=== PATIENT | female | born 1985 | race Caucasian/White ===

== ENCOUNTER → 2020-06-21 10:30 | Outpatient (CLI) | payer OTHER, SELFPAY ==
--- NOTE | 2020-06-21 10:38 | CA_ITS ---
APPROVED REPORT Right Lower Extremity Venous Study for DVT. Warehouse Handler: CT Indications Lower Extremity Pain: Right Lower Extremity Edema: Right Vein Imaging CFV (R): compressive, spontaneous, phasic, augmentation SFJ (R): compressive, spontaneous, phasic, augmentation FEM (R): compressive, spontaneous, phasic, augmentation POP (R): compressive, spontaneous, phasic, augmentation DFV (R): compressive, spontaneous, phasic, augmentation PTV (R): compressive, spontaneous, phasic, augmentation GSV (R): compressive, spontaneous, phasic, augmentation SSV (R): compressive, spontaneous, phasic, augmentation Peroneals (R):compressive, spontaneous, phasic, augmentation GAS (R): compressive, spontaneous, phasic, augmentation Findings RLE negative for DVT/SVT. Vessels compressible. Calf difficult to image. Conclusion RLE negative for DVT/SVT. Vessels compressible. Electronically signed by : Gilson Bergman MD 06/21/2020 19:52:27
== END ==
PROVIDERS: PCP Nurse Practitioner Family; Visit Provider Nurse Practitioner Family
DX: M79.89 Other specified soft tissue disorders (principal); M79.661 Pain in right lower leg
CPT/HCPCS: 93971

== ENCOUNTER → 2020-06-28 09:13 | Outpatient (CLI) | payer OTHER, SELFPAY ==
--- NOTE | 2020-06-28 | MR_ITS ---
PROCEDURE: MR LOWER LEG RT WO CON CLINICAL INDICATION: SOFTBALL INJURY PAIN IN RT CALF MUSCLE. QUESTION TORN MUSCLE. NO PRIOR. > COMPARISON: No exams were available for comparison TECHNIQUE: Routine multiplanar multi echo sequences are performed without gadolinium enhancement. FINDINGS: There is focal increased T2 signal involving the distal aspect of the medial head of the gastrocnemius consistent with tear of the muscle at this area. This is 18 cm distal to the level of the knee joint prison between the knee and the ankle. There is a small amount of fluid in this area and there is some edema of the medial head of the gastrocnemius superior to this region. The muscle is not significantly retracted.. There is subcutaneous fluid noted along the medial aspect of the calf. Small amount fluid also transects between the medial head of the gastrocnemius and the soleus muscle. No acute fracture is evident. Subcutaneous edema is present on both medial and lateral aspect of the ankle. IMPRESSION: The findings are compatible with tear of the distal aspect of the medial head of the gastrocnemius muscle with associated edema of the muscle and a small amount fluid within the tissue planes along with subcutaneous edema of the ankle. Dictated by: Gilson Bergman MD 06/29/2020 12:54 Gilson Bergman MD in [place] 06/29/2020 12:54
[2020-06-28 09:53] LABS: Urine Pregnancy, HCG Qual. Negative (Negative)
== END ==
PROVIDERS: PCP Nurse Practitioner Family; Visit Provider Nurse Practitioner Family
DX: Z32.00 Encounter for pregnancy test, result unknown (principal); M79.89 Other specified soft tissue disorders; M79.661 Pain in right lower leg; S89.91XA Unspecified injury of right lower leg, initial encounter
CPT/HCPCS: 73718; 81025

== ENCOUNTER 2023-07-28 22:12 | Observation (INO) | payer BC, SELFPAY ==
[2023-07-28 22:29] VITALS: RESP 20; TEMP 36.5; O2SAT 99; BMI 31.0
[2023-07-28 22:35] VITALS: BP 143/75; PULSE 71
--- NOTE | 2023-07-28 22:39 | CT_ITS ---
PROCEDURE INFORMATION: Exam: CT Abdomen And Pelvis With Contrast Exam date and time: 07/28/2023 11:03 PM Age: 37 years old Clinical indication: Abdominal pain; Additional info: Ruq pain, vomit TECHNIQUE: Imaging protocol: Computed tomography of the abdomen and pelvis with contrast. Radiation optimization: All CT scans at this facility use at least one of these dose optimization techniques: automated exposure control; mA and/or kV adjustment per patient size (includes targeted exams where dose is matched to clinical indication); or iterative reconstruction. Contrast material: ISOVUE; Contrast volume: 75 ml; Contrast route: IV; REPORTING DATA: Count of CT and Cardiac NM exams in prior 12 months: This patient has received 0 known CTs and 0 known cardiac nuclear medicine studies in the 12 months prior to the current study. COMPARISON: CA VENOUS DOPPLER LE RT 06/21/2020 10:44 AM FINDINGS: Lungs: Lung bases are clear. Liver: Diffuse periportal edema noted throughout the liver. Liver otherwise unremarkable. Gallbladder and bile ducts: Evidence for potential mild to moderate dilatation of the extrahepatic CBD measuring up to 10 mm. This extends to the ampulla. Small stones versus sludge in the gallbladder which is otherwise unremarkable. Pancreas: Normal. No ductal dilation. Spleen: Normal. No splenomegaly. Adrenal glands: Normal. No mass. Kidneys and ureters: A 4 mm nonobstructing stone in the inferior right kidney. A 5 mm nonobstructing stone superior left kidney. Kidneys and ureters otherwise unremarkable with no obstructing stones or uropathy. Stomach and bowel: Unremarkable. No obstruction. No mucosal thickening. Appendix: No evidence of appendicitis. Intraperitoneal space: Unremarkable. No free air. No significant fluid collection. Vasculature: Unremarkable. No abdominal aortic aneurysm. Lymph nodes: Unremarkable. No enlarged lymph nodes. Urinary bladder: Unremarkable as visualized. Reproductive: Unremarkable as visualized. Bones/joints: Unremarkable. No acute fracture. Soft tissues: Unremarkable. IMPRESSION: 1. Mildly to moderately dilated extrahepatic CBD for patient of this age. This finding can be correlated clinically. Consider ultrasound for further assessment. 2. Periportal edema which is nonspecific finding but can be associated with acute viral hepatitis among other possibilities.
--- NOTE | 2023-07-28 22:40 | HMH.EDGENADL ---
Discharge Plan Disposition Patient Disposition: Admitted Clinical Impressions Clinical Impression: Abdominal pain, Cholelithiasis with choledocholithiasis Discharge ED Provider: Andrey Zarco General Adult HPI <Andrey Zarco MD - Last Filed: 07/28/23 23:02> General Chief complaint: Abdominal Pain Stated complaint: RT upper abd pain Time Seen by Provider: 07/28/23 22:19 Mode of Arrival: Ambulatory Source of Information: Patient Limitations: No Limitations Description of Symptoms (Recalled from ER Triage Doc. by RN): Patient states she had a and a tubal ligation almost 3 months ago, started expirencing RUQ pain off and on, tonight after she ate chilli she started having the pain agian but nothing was improving her pain. Rates pain 10 History of Present Illness HPI narrative: Patient is 37-year-old female who presents emergency department for evaluation of right upper quadrant abdominal pain. Patient has had right upper quadrant pain on and off recently, tonight after eating she had associated retching and right upper quadrant abdominal pain. Pain is 10 out of 10. No other acute complaints at this time. Related Data Home Medications Medication Instructions Recorded Confirmed No Known Home Medications 07/28/23 07/28/23 Allergies Allergy/AdvReac Type Severity Reaction Status Date / Time NKDA - NO KNOWN DRUG Allergy Unknown Uncoded 09/17/17 15:40 ALLERGIES PFSH <Andrey Zarco MD - Last Filed: 07/28/23 23:02> PFS Disclaimer: The information contained in this section may have been updated after the patient was seen, as this information can be updated by other users. Medical History (Updated 07/29/23 @ 02:15 by Kevin Tesfaye MD) delivery delivered Preeclampsia Surgical History (Updated 07/28/23 @ 22:42 by Ivon Ferrell RN) Tubal ligation status Social History (Updated 07/28/23 @ 23:02 by Andrey Zarco MD) Smoking Status: Never smoker alcohol intake: never current occupational status: other Travel in the last 8 weeks: None <Andrey Zarco MD - Last Filed: 07/28/23 23:02> ROS Obtained: Yes Systems reviewed as appropriate & no additional complaints except as documented Physical Exam <Andrey Zarco MD - Last Filed: 07/28/23 23:02> General General appearance: alert and in no apparent distress Head Head exam: atraumatic and normocephalic Eye Eye exam: Present PERRL and EOMI ENT ENT exam: Present mucous membranes moist Neck Neck exam: Present normal inspection Chest Chest inspection: Present normal inspection and symmetric chest wall rise Respiratory Respiratory exam: Present normal lung sounds bilaterally; Absent respiratory distress Cardiovascular Cardiovascular exam: Present regular rate and normal rhythm Abdominal Exam Abdominal exam: Present soft, tenderness (Right upper quadrant) and guarding (Voluntary) Extremities Exam Extremities exam: Present normal inspection Neurological Exam Neurological exam: Present alert Psychiatric Psychiatric exam: Present normal affect Skin Skin exam: Present warm and dry Medical Decision Making <Andrey Zarco MD - Last Filed: 07/28/23 23:02> Onofre Lauren Pt receiving controlled substance: No Vital Signs: 07/28/23 22:29 07/28/23 22:35 07/29/23 02:16 Temperature 97.7 F Temperature Source Oral Pulse Rate 71 57 L Respiratory Rate 20 18 Blood Pressure 143/75 H 135/75 Blood Pressure Mean 95 02 Sat by Pulse Oximetry 99 99 Oxygen Delivery Method Room Air Room Air Lab Data Lab Results 07/28/23 22:15: Urine Color Yellow, Urine Appearance Clear, Urine pH 6.0, Ur Specific [place] >= 1.030, Urine Protein Trace, Urine Glucose (UA) Negative, Urine Ketones Negative, Urine Blood 2+, Urine Nitrate Negative, Urine Bilirubin Negative, Urine Urobilinogen 1.0, Ur Leukocyte Esterase Negative, Urine RBC 5-10, Urine WBC None, Ur Squamous Epith Cells Occasional, Urine Bacteria No
[2023-07-28 22:45] LABS: Microscopic, Urine URINE MICROSCOPIC (MICROSCOPIC)
[2023-07-28 22:46] LABS: Basophils # 0.1 K/mm3 (0-0.2); Basophils % 0.6 % (0.1-2.0); Eosinophils # 0.1 K/mm3 (0.0-0.4); Eosinophils % 1.2 % (0.1-12.0); Hematocrit 37.9 % (37.0-47.0); Hemoglobin 12.5 g/dL (12.2-16.2); Lymphocytes # 2.5 K/mm3 (0.7-4.5); Lymphocytes % 24.7 % (10-50); Mean Corpuscular Hemoglobin 28.9 pg (27.0-31.2); Mean Corpuscular Volume 87.7 fl (81-99); Mean Platelet Volume 7.8 fl (7.4-10.4); Monocytes # 0.5 K/mm3 (0.1-1.0); Monocytes % 5.2 % (1.7-9.3); Neutrophils % 68.4 % (37.0-80.0); Platelet Count 329 K/mm3 (142-424); Red Blood Count 4.32 M/mm3 (4.20-5.40); Red Cell Distribution Width 14.8 % (11.5-17.5); White Blood Count 10.3 K/mm3 (4.8-10.8)
[2023-07-28 22:47] LABS: Appearance,Urine CLEAR (Clear); Bilirubin,Urine Negative (Negative); Blood, Urine 2+ (Negative); Color,Urine YELLOW (Yellow); Glucose,Urine (UA) Negative (Negative); Ketones,Urine Negative (Negative); Leukocyte Esterase,Urine Negative (Negative); Nitrate,Urine Negative (Negative); Protein,Urine TRACE (Negative); Specific Gravity, Urine >= 1.030 (1.005-1.030)
[2023-07-28 22:48] LABS: Chloride 104 mmol/L (98-107); Potassium 3.6 mmoL/L (3.5-5.1); Sodium 141 mmol/L (136-145)
[2023-07-28 22:50] LABS: Alanine Aminotransferase 75 U/L (12-78); Aspartate Amino Transferase 75 U/L (14-36); Blood Urea Nitrogen 16 mg/dl (7-17); Creatinine Clearance Estimated 130 mL/min (50-200); Estimated Glomerular Filt Rate 71 ml/min (>60); GFR (African American) 86 ML/MIN (>60)
[2023-07-28 22:51] LABS: Albumin/Globulin Ratio 1.5 (1.1-1.8); Alkaline Phosphatase 89 U/L (38-126); Anion Gap 13.6 mEq/L (5-15); Bilirubin,Total 0.3 mg/dl (0.2-1.3); Calcium 9.4 mg/dl (8.4-10.2); Carbon Dioxide 27 mmol/L (22.0-30.0); Globulin 3.3 g/dL (1.3-3.2); Glucose 109 mg/dl (74-100); Lipase 163 U/L (23-300); Total Protein,Serum 8.3 g/dl (6.3-8.2)
[2023-07-28 22:54] LABS: Squamous Epithelial Cell,Urine Occasional #/hpf (0-5)
[2023-07-29] VITALS (23 sets, daily range): BP systolic 124–178; BP diastolic 68–102; PULSE 52–80; RESP 16–19; TEMP 36.6–36.9; O2SAT 93–100; BMI 36.5; BMI 36.6
--- NOTE | 2023-07-29 00:38 | PC.NURSE ---
patient in bed waiting for disposition. No acute changes
--- NOTE | 2023-07-29 00:51 | PC.NURSE ---
Addendum entered by Grazyna Munroe RN 07/29/23 00:52: and no GI coverage gavino Original Note: called [facility]
--- NOTE | 2023-07-29 01:25 | PC.NURSE ---
[facility] advised they are full at this time and can't take the pt.
--- NOTE | 2023-07-29 01:33 | PC.NURSE ---
Called [facility] for possible placement. Advised by transfer center that they are on a hold for all the facilities at this time and will put the pt on a waitlist. JOSE
--- NOTE | 2023-07-29 01:41 | PC.NURSE ---
Hospitalist accepted the pt for further evaluation. JOSE
--- NOTE | 2023-07-29 01:46 | PC.NURSE ---
Observation admission 209 to service of hospitalist with dx of cholecystitis, and cholelithiasis.
--- NOTE | 2023-07-29 02:15 | PC.NURSE ---
report given to RAJ Robles
--- NOTE | 2023-07-29 02:39 | PC.NURSE ---
pt to floor via wheel chair [id number]
--- NOTE | 2023-07-29 02:44 | EXP.HP ---
History of Present Illness *Admission Date: 07/29/23 *Reason for visit:: choledochlithiasis *History of present illness: 37 year old female presented to the ED for c/o RUQ pain. No prior medical hx. Pain has been on and off for past three months since delivering her third baby via section. She states also occurred during . She normally takes Pepcid and motion to improve pain. Tonight after eating pain was 10 out of 10 with no relief. Her ED work up reveals an elevated AST to [address] of her abd reviewed by me and reveals dilation of her common bile duct that measures up to 10 mm and periportal edema. The patient is hemodynamically stable and refusing narcotics. She appears generally healthy and is no acute distress. The pt was accepted at by Dr. Calles for further medical management and GI services. The ED physician attempted to have pt transferred to [facility], and [facility] but was unable to get a pending bed. has a pending bed on the medical floor. The ED physician consulted the hospitalist team for admission pending transfer. I admitted the pt to the medical surgical floor. She will receive PRN medication for pain. [facility] Disclaimer: The information contained in this section may have been updated after the patient was seen, as this information can be updated by other users. Medical History (Updated 07/29/23 @ 08:50 by Mahin Mauro MD) delivery delivered Preeclampsia Surgical History Tubal ligation status Family History (Updated 07/29/23 @ 02:50 by Dafne Ward RN) No significant family history Social History (Updated 07/29/23 @ 02:50 by Dafne Ward RN) Smoking Status: Never smoker alcohol intake: never current occupational status: other Travel in the last 8 weeks: None Review of Systems *Cardiovascular Cardiovascular: Reports system reviewed and no additional complaints, except as documented *Respiratory Respiratory: Reports system reviewed and no additional complaints, except as documented *Gastrointestinal Gastrointestinal: Reports abdominal pain (RUQ) *Genitourinary Genitourinary: Reports system reviewed and no additional complaints, except as documented *Musculoskeletal Musculoskeletal: Reports system reviewed and no additional complaints, except as documented *Neurologic Neurologic: Reports system reviewed and no additional complaints, except as documented Meds Home Medications and Allergies Home Medications Medication Instructions Recorded Confirmed Type No Known Home Medications 07/28/23 07/28/23 History New Prescriptions to Start Prescriptions: Allergies Allergy/AdvReac Type Severity Reaction Status Date / Time NKDA - NO KNOWN DRUG Allergy Unknown Uncoded 09/17/17 15:40 ALLERGIES Exam Data for Last 24 hours Vital signs and Labs for Last 24 Hours: Temp Pulse Resp BP Pulse Ox O2 Del Method 98.1 F 80 18 124/76 99 Room Air 07/29/23 02:30 07/29/23 02:30 07/29/23 02:30 07/29/23 02:30 07/29/23 02:16 07/29/23 02:16 Laboratory Results - last 24 hr 07/28/23 22:15: Urine Color Yellow, Urine Appearance Clear, Urine pH 6.0, Ur Specific [place] >= 1.030, Urine Protein Trace, Urine Glucose (UA) Negative, Urine Ketones Negative, Urine Blood 2+, Urine Nitrate Negative, Urine Bilirubin Negative, Urine Urobilinogen 1.0, Ur Leukocyte Esterase Negative, Urine RBC 5-10, Urine WBC None, Ur Squamous Epith Cells Occasional, Urine Bacteria None 07/28/23 22:25: WBC 10.3, RBC 4.32, Hgb 12.5, Hct 37.9, MCV 87.7, MCH 28.9, MCHC 33.0, RDW 14.8, Plt Count 329, MPV 7.8, Neut % (Auto) 68.4, Lymph % (Auto) 24.7, Camp % (Auto) 5.2, Eos % (Auto) 1.2, Baso % (Auto) 0.6, Neut # (Auto) 7.0, Lymph # (Auto) 2.5, Camp # (Auto) 0.5, Eos # (Auto) 0.1, Baso # (Auto) 0.1, Sodium 141, Potassium 3.6, Chloride 104, Carbon Dioxide 27, Anion Gap 13.6, BUN 16, Creatinine 0.90, Estimated Creat Clear 1
[2023-07-29 06:12] LABS: Basophils % 0.6 % (0.1-2.0); Eosinophils # 0.1 K/mm3 (0.0-0.4); Eosinophils % 1.1 % (0.1-12.0); Hematocrit 35.4 % (37.0-47.0); Hemoglobin 11.7 g/dL (12.2-16.2); Lymphocytes # 2.4 K/mm3 (0.7-4.5); Lymphocytes % 30.5 % (10-50); Mean Corpuscular HGB Conc 33.1 g/dL (31.8-35.4); Mean Corpuscular Hemoglobin 29.6 pg (27.0-31.2); Mean Corpuscular Volume 89.3 fl (81-99); Mean Platelet Volume 7.9 fl (7.4-10.4); Monocytes # 0.5 K/mm3 (0.1-1.0); Monocytes % 6.7 % (1.7-9.3); Neutrophils # 4.7 K/mm3 (1.8-7.8); Neutrophils % 61.1 % (37.0-80.0); Platelet Count 281 K/mm3 (142-424); Red Blood Count 3.97 M/mm3 (4.20-5.40); Red Cell Distribution Width 14.8 % (11.5-17.5); White Blood Count 7.7 K/mm3 (4.8-10.8)
[2023-07-29 06:18] LABS: Chloride 107 mmol/L (98-107)
[2023-07-29 06:19] LABS: Sodium 139 mmol/L (136-145)
[2023-07-29 06:22] LABS: Blood Urea Nitrogen 16 mg/dl (7-17); Calcium 8.8 mg/dl (8.4-10.2); Carbon Dioxide 26 mmol/L (22.0-30.0); Creatinine Clearance Estimated 153 mL/min (50-200); Estimated Glomerular Filt Rate 81 ml/min (>60); GFR (African American) 98 ML/MIN (>60); Glucose 95 mg/dl (74-100)
--- NOTE | 2023-07-29 07:10 | US_ITS ---
FINAL REPORT CLINICAL HISTORY: eval gallbladdder and ducts FINDINGS: Sonographic images of the right upper quadrant were obtained. The pancreas is partially obscured.The liver has an unremarkable appearance. A gallstone is present. There is no evidence of biliary ductal dilatation.The common duct measures 6 mm, which is borderline.. Limited images of the right kidney are unremarkable. IMPRESSION: Gallstones with borderline common duct. If indicated, consider MRCP for further evaluation. Reviewed, Interpreted and Dictated by Lazaro Thompson III, MD Transcribed by Rosa Roberts Authenticated and [facility]
[2023-07-29 07:15] LABS: Chloride 107 mmol/L (98-107)
[2023-07-29 07:16] LABS: Sodium 139 mmol/L (136-145)
[2023-07-29 07:18] LABS: Alanine Aminotransferase 187 U/L (12-78); Albumin Level 4.3 g/dl (3.5-5.0); Albumin/Globulin Ratio 1.5 (1.1-1.8); Alkaline Phosphatase 92 U/L (38-126); Aspartate Amino Transferase 208 U/L (14-36); Bilirubin,Total 0.5 mg/dl (0.2-1.3); Blood Urea Nitrogen 16 mg/dl (7-17); Calcium 8.8 mg/dl (8.4-10.2); Carbon Dioxide 25 mmol/L (22.0-30.0); Creatinine Clearance Estimated 153 mL/min (50-200); Estimated Glomerular Filt Rate 81 ml/min (>60); GFR (African American) 98 ML/MIN (>60); Globulin 2.9 g/dL (1.3-3.2); Glucose 95 mg/dl (74-100); Total Protein,Serum 7.2 g/dl (6.3-8.2)
--- NOTE | 2023-07-29 10:38 | MR_ITS ---
FINAL REPORT CLINICAL HISTORY: RUQ ABD PAIN COMPARISON: 07/29/2023 FINDINGS: Multiplanar MR imaging of the abdomen was performed without contrast. There is motion artifact on many sequences. Images of the liver reveal no evidence of mass. Gallbladder contains a gallstone and sludge. There is mild pericholecystic fluid. Acute cholecystitis not excluded. Common hepatic duct is borderline at 6 mm. There is no well-defined common duct stone. However, distal common bile duct is abnormally blunted. Therefore, stone at the ampulla is not excluded. IMPRESSION: Gallstone and sludge with mild pericholecystic fluid. Acute cholecystitis not excluded. Borderline common hepatic duct without well-defined stone. However, stone at the ampulla not excluded. Reviewed, Interpreted and Dictated by Lazaro Thompson III, MD Transcribed by Rosa Roberts Authenticated and . [facility]
--- NOTE | 2023-07-29 13:36 | EXP.SURG.CON ---
History of Present Illness *Admission Date: 07/29/23 *History of present illness: The following is obtained from Hospitalist Admission History & Physical: 37 year old female presented to the ED for c/o RUQ pain. No prior medical hx. Pain has been on and off for past three months since delivering her third baby via section. She states also occurred during . She normally takes Pepcid and motion to improve pain. Tonight after eating pain was 10 out of 10 with no relief. Her ED work up reveals an elevated AST to [address] of her abd reviewed by me and reveals dilation of her common bile duct that measures up to 10 mm and periportal edema. The patient is hemodynamically stable and refusing narcotics. She appears generally healthy and is no acute distress. The pt was accepted at by Dr. Calles for further medical management and GI services. The ED physician attempted to have pt transferred to [place], [place], and [facility] but was unable to get a pending bed. has a pending bed on the medical floor. The ED physician consulted the hospitalist team for admission pending transfer. I admitted the pt to the medical surgical floor. She will receive PRN medication for pain. Patient was admitted to the medical surgical floor with possible choledocholithiasis based on CT scan. After admission she did show some increasing transaminase. However she continued have normal alkaline phosphatase and bilirubin. She underwent gallbladder ultrasound which revealed gallstone present in the gallbladder with 6 mm common bile duct which was felt to be borderline. Given the borderline ductal dilatation and elevation of transaminases she did undergo MRCP. This reveals findings of gallstones and sludge with mild pericholecystic fluid. Acute cholecystitis not excluded. . She has borderline common hepatic duct without well-defined stone however stone at the ampulla not excluded. [facility] Disclaimer: The information contained in this section may have been updated after the patient was seen, as this information can be updated by other users. Medical History delivery delivered Preeclampsia Surgical History Tubal ligation status Family History Other No significant family history Social History Smoking Status: Never smoker alcohol intake: never substance use type: denies use current occupational status: other Travel in the last 8 weeks: None Review of Systems *Neurologic Neurologic: Reports system reviewed and no additional complaints, except as documented Meds Home Medications and Allergies Home Medications Medication Instructions Recorded Confirmed Type No Known Home Medications 07/28/23 07/28/23 History New Prescriptions to Start Prescriptions: Allergies Allergy/AdvReac Type Severity Reaction Status Date / Time NKDA - NO KNOWN DRUG Allergy Unknown Uncoded 09/17/17 15:40 ALLERGIES Exam (Inpt) Vital signs and Labs for Last 24 Hours: Temp Pulse Resp BP Pulse Ox O2 Del Method 98.4 F 61 19 126/84 99 Room Air 07/29/23 08:00 07/29/23 08:00 07/29/23 08:00 07/29/23 08:00 07/29/23 08:00 07/29/23 12:58 Laboratory Results - last 24 hr 07/28/23 22:15: Urine Color Yellow, Urine Appearance Clear, Urine pH 6.0, Ur Specific [place] >= 1.030, Urine Protein Trace, Urine Glucose (UA) Negative, Urine Ketones Negative, Urine Blood 2+, Urine Nitrate Negative, Urine Bilirubin Negative, Urine Urobilinogen 1.0, Ur Leukocyte Esterase Negative, Urine RBC 5-10, Urine WBC None, Ur Squamous Epith Cells Occasional, Urine Bacteria None
--- NOTE | 2023-07-29 13:54 | P.PNANES_ITS ---
[facility] Disclaimer: The information contained in this section may have been updated after the patient was seen, as this information can be updated by other users. Medical History delivery delivered Preeclampsia Surgical History Tubal ligation status Family History Other No significant family history Social History Smoking Status: Never smoker alcohol intake: never substance use type: denies use current occupational status: other Travel in the last 8 weeks: None [facility] Anesthesia Checklist Patient Identification Patient Identification: Arm Band and Verbal (Name & ) Structural Data Admitted From: Inpatient Planned Operative Procedure/s: Lap cholecystectomy Consent for Planned Operative Procedure(s) Verified: Yes NPO Status Verified Time NPO: 00:00 Chart Verification Results Verified: CBC and BMP Additional verifications Anesthesia Reactions: No Airway Assessment Mallampati Score:: Class I C-Spine Mobility Assessed: Yes TMJ Mobility Assessed: Yes Dentition: Good Dentition Neurological Assessment Level of Consciousness: Awake Hx Seizures: No Numbness or tingling in extremities: No Anesthesia Plan Anesthesia Risk discussed: Yes Anesthesia Plan: Verified ASA Class: II Anesthesia Type: General
[2023-07-29 14:55] LABS: Urine Pregnancy, HCG Qual. Negative (Negative)
--- NOTE | 2023-07-29 16:36 | EXP.OP.NOTE ---
Date of procedure: 07/29/23 Pre-op Diagnosis:: Acute cholecystitis Post-op Diagnosis:: Same Procedure performed:: Laparoscopic cholecystectomy Surgeon:: Lazaro Winters MD NURSE CASE MANAGER:: Wan Santiago Anesthesia: GETMelany Estimated blood loss (mL): 15 Clinical Note:: Patient is a very pleasant 37-year-old female who is 3 months status post . She states that over the past few months she has had occasional right upper quadrant pain. This is usually self-limited. However, in the evening of 07/28/2023 after she had eaten she had severe right upper quadrant pain radiating into her back. She had evaluation in the emergency department which revealed a slightly above normal AST of 75. CT scan revealed possible common ductal dilatation with findings of sludge in the gallbladder. It was felt that she may have choledocholithiasis apparently and arrangements were made for transfer to [facility]. However, she was placed on the wait list and admitted to this facility for inpatient management. The following morning on 07/29/2023 the case was discussed with surgery. It was felt that this may be potentially merely acute cholecystitis. Ultrasound of the gallbladder was recommended which revealed gallstones with findings of acute cholecystitis and 6 mm common bile duct. She did have an MRCP performed which revealed no evidence of any common duct stone. Interestingly she did have some further increase in her transaminases with continued normal bilirubin and alkaline phosphatase. The options were discussed with the patient was felt that this was likely acute cholecystitis and potentially, although less likely, based on blood work and MRCP choledocholithiasis. Patient wished to pursue surgery. Plan was made to proceed with laparoscopic with possibly open cholecystectomy with possible intraoperative cholangiogram. Operative findings:: Patient had an acutely inflamed distended edematous gallbladder with pericholecystic fluid. Duodenum was adherent to the neck of the gallbladder. There was acute inflammation around the lory hepatis and therefore to minimize potential iatrogenic injury to common bile duct cholangiogram was not performed. Operative note:: Patient was taken to the operating room. She was given preoperative intravenous antibiotics. In the operating room she is placed in a supine position. General anesthesia was induced via endotracheal tube. Abdomen was prepped and draped in the standard surgical fashion. Subumbilical skin incision was made and while performing abdominal wall lift Veress needle was inserted. CO2 pneumoperitoneum was achieved to 15 mmHg. 11 mm optical trocar was inserted at the umbilicus. Intraperitoneal contents were visualized. Gallbladder was easily identified and found to be distended and edematous. Patient was positioned in reverse Trendelenburg and left side down. A couple 5 mm trocars were inserted in the right upper abdomen. 10 mm trocar was inserted in the epigastrium. Gallbladder was grasped retracted anteriorly and superiorly over the dome of the liver. There were some omental adhesions to the gallbladder which were taken down using a combination of blunt dissection and a's ultrasonic harmonic uri. Gallbladder was distended and tense. Infundibulum of the gallbladder was retracted anterior laterally. The duodenum was quite adherent to the gallbladder neck and this was taken down using blunt dissection. Blunt dissection was carried out at the neck of the gallbladder isolating and dissecting free the cystic duct and cystic artery. Due to the inflammation and due to lack of findings suggestive of choledocholithiasis including no evidence of any common bile duct stone on MRCP and normal bilirubin and alkaline phosphatase intraoperative cholangiogram was not performed due to the potential for ductal injury given the inflammation. The cystic duct was then isolated and multiply clipped and sharply Div
--- NOTE | 2023-07-29 16:40 | P.PNANES_ITS ---
[facility] Anesthesia Record Part I Anesthesia Record I Intake, IV Amount: 1,000 Hydration: Adequate Estimated blood loss (mL): 15 Urine output (mL): 0 Blood Pressure: 133/72 SaO2: 93 Pulse Rate: 63 Airway Patency: Patent Respiratory Rate: 17 Temperature: 98.2 F Patient is:: Drowsy and Oral/Nasal airway Stable to PACU at:: 16:30
--- NOTE | 2023-07-29 21:59 | PC.NURSE ---
Patient arrived to the unit at this time via wheelchair.
--- NOTE | 2023-07-29 22:20 | PC.NURSE ---
Patient reports pain 7/10 but denies any need or want for interventions.
[2023-07-30] VITALS: BP 117/54; PULSE 54; RESP 20; TEMP 36.7; O2SAT 97
[2023-07-30 04:00] VITALS: BP 107/56; PULSE 62; RESP 20; TEMP 36.7; O2SAT 96; BMI 37.6
--- NOTE | 2023-07-30 04:00 | PC.NURSE ---
Patient is alert and oriented x4. Patient denies any pain upon reassessment. Patient bowel sounds are normoactive in all 4 quadrants. Lung sounds are clear throughout. Patient's surgical sites are clean, dry and intact x4. There is some dried serosanguineous on one of the dressings.
[2023-07-30 06:43] LABS: Basophils % 0.3 % (0.1-2.0); Eosinophils % 0.1 % (0.1-12.0); Hematocrit 35.7 % (37.0-47.0); Hemoglobin 11.9 g/dL (12.2-16.2); Lymphocytes # 1.3 K/mm3 (0.7-4.5); Lymphocytes % 12.9 % (10-50); Mean Corpuscular HGB Conc 33.4 g/dL (31.8-35.4); Mean Corpuscular Hemoglobin 29.5 pg (27.0-31.2); Mean Corpuscular Volume 88.5 fl (81-99); Mean Platelet Volume 8.2 fl (7.4-10.4); Monocytes # 0.4 K/mm3 (0.1-1.0); Monocytes % 4.4 % (1.7-9.3); Neutrophils # 8.2 K/mm3 (1.8-7.8); Neutrophils % 82.3 % (37.0-80.0); Platelet Count 284 K/mm3 (142-424); Red Blood Count 4.03 M/mm3 (4.20-5.40); Red Cell Distribution Width 14.8 % (11.5-17.5)
[2023-07-30 06:52] LABS: Chloride 108 mmol/L (98-107); Sodium 139 mmol/L (136-145)
[2023-07-30 06:53] LABS: Potassium 4.5 mmoL/L (3.5-5.1)
[2023-07-30 06:55] LABS: Alanine Aminotransferase 577 U/L (12-78); Albumin Level 4.2 g/dl (3.5-5.0); Albumin/Globulin Ratio 1.4 (1.1-1.8); Alkaline Phosphatase 191 U/L (38-126); Anion Gap 10.5 mEq/L (5-15); Aspartate Amino Transferase 421 U/L (14-36); Bilirubin,Total 3.2 mg/dl (0.2-1.3); Blood Urea Nitrogen 12 mg/dl (7-17); Calcium 8.5 mg/dl (8.4-10.2); Carbon Dioxide 25 mmol/L (22.0-30.0); Creatinine Clearance Estimated 157 mL/min (50-200); Estimated Glomerular Filt Rate 81 ml/min (>60); GFR (African American) 98 ML/MIN (>60); Globulin 3.1 g/dL (1.3-3.2); Glucose 106 mg/dl (74-100); Total Protein,Serum 7.3 g/dl (6.3-8.2)
[2023-07-30 07:45] VITALS: O2SAT 98
--- NOTE | 2023-07-30 08:09 | EXP.DC.SUM ---
General Admission date:: 07/29/23 Discharge date: 07/30/23 HPI HPI HPI: The following is obtained from Hospitalist Admission History & Physical: 37 year old female presented to the ED for c/o RUQ pain. No prior medical hx. Pain has been on and off for past three months since delivering her third baby via section. She states also occurred during . She normally takes Pepcid and motion to improve pain. Tonight after eating pain was 10 out of 10 with no relief. Her ED work up reveals an elevated AST to [address] of her abd reviewed by me and reveals dilation of her common bile duct that measures up to 10 mm and periportal edema. The patient is hemodynamically stable and refusing narcotics. She appears generally healthy and is no acute distress. The pt was accepted at by Dr. Calles for further medical management and GI services. The ED physician attempted to have pt transferred to [place], [place], and [facility] but was unable to get a pending bed. has a pending bed on the medical floor. The ED physician consulted the hospitalist team for admission pending transfer. I admitted the pt to the medical surgical floor. She will receive PRN medication for pain. Patient was admitted to the medical surgical floor with possible choledocholithiasis based on CT scan. After admission she did show some increasing transaminase. However she continued have normal alkaline phosphatase and bilirubin. She underwent gallbladder ultrasound which revealed gallstone present in the gallbladder with 6 mm common bile duct which was felt to be borderline. Given the borderline ductal dilatation and elevation of transaminases she did undergo MRCP. This reveals findings of gallstones and sludge with mild pericholecystic fluid. Acute cholecystitis not excluded. . She has borderline common hepatic duct without well-defined stone however stone at the ampulla not excluded. Hospital Course Hospital Course Hospital Course: Patient was admitted as noted, after several imaging studies were done and it was determined that patient did not have evidence of a significant CBD stone and was taken to surgery. Uncomplicated laparoscopic cholecystectomy was done. The patient felt much better. This morning she feels good, he is passing flatus has been eating well and has no pain or fever. She feels much better than preop. Her labs this morning do show bilirubin and transaminase elevation. Discussed case with surgery. Possibilities include passed CBD stone, trending upward LFTs from presurgical obstructive injury or, less likely, a retained CBD stone. Patient feels good, desperately wishes to go home to be with her baby. 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 She is instructed if she has jaundice, increasing pain or fever to report immediately to the ER for consideration of ERCP. She understands this. Exam Data for Last 24 hours Vital signs and Labs for Last 24 Hours: Temp Pulse Resp BP Pulse Ox O2 Del Method 98.0 F 62 20 107/56 L 96 Room Air 07/30/23 04:00 07/30/23 04:00 07/30/23 04:00 07/30/23 04:00 07/30/23 04:00 07/30/23 07:09 Laboratory Results - last 24 hr 07/28/23 22:15: Urine HCG, Qual Negative 07/30/23 06:29: WBC 10.0 D, RBC 4.03 L, Hgb 11.9 L, Hct 35.7 L, MCV 88.5, MCH 29.5, MCHC 33.4, RDW 14.8, Plt Count 284, MPV 8.2, Neut % (Auto) 82.3 H, Lymph % (Auto) 12.9, [place] % (Auto) 4.4, Eos % (Auto) 0.1, Baso % (Auto) 0.3, Neut # (Auto) 8.2 H, Lymph # (Auto) 1.3, [place] # (Auto) 0.4, Eos # (Auto) 0.0, Baso # (Auto) 0.0, Sodium 139, Potassium 4.5,
--- NOTE | 2023-07-30 08:37 | P.PNANES_ITS ---
[facility] Anesthesia Record Part II Anesthesia Record Part II Discharge Time: 17:00 Destination: Medical Surgical Department PACU nurse assessment reviewed?: Yes Patient Condition:: Good Anesthesia Complications:: None Swallowing reflex intact?: Yes Airway Patency: Patent Cyanosis?: No Blood Pressure: 159/95 SaO2: 96 Respiratory Rate: 17 Pulse Rate: 63 Temperature: 98.2 F Mental Status: Alert & Oriented Pain level:: 0 Nausea and/or vomitting:: None Intake, IV Amount: 0 Hydration: Adequate
[2023-07-30 08:38] VITALS: BP 159/95; PULSE 63; RESP 17; TEMP 36.8; O2SAT 96
[2023-07-30 09:35] LABS: HBsAg Screen Negative (Negative); HCV Ab Non Reactive (Non Reactive); Hep A Ab, IGM Negative (Negative); Hep B Core Ab, IgM Negative (Negative)
--- NOTE | 2023-07-30 10:36 | EXP.SURG.PN ---
Subjective Narrative: Patient feels quite well at this time. Much better than preoperatively. Denies any abdominal pain. Tolerating limited diet. Exam Data for Last 24 hours Vital signs and Labs for Last 24 Hours: Temp Pulse Resp BP Pulse Ox O2 Del Method 98.0 F 62 17 107/56 L 98 Room Air 07/30/23 04:00 07/30/23 04:00 07/30/23 08:38 07/30/23 04:00 07/30/23 07:45 07/30/23 09:00 Laboratory Results - last 24 hr 07/28/23 22:15: Urine HCG, Qual Negative 07/29/23 05:46: Hepatitis A IgM Ab Negative, Hep Bs Antigen Negative, Hep B Core IgM Ab Negative, Hepatitis C Antibody Non reactive 07/30/23 06:29: WBC 10.0 D, RBC 4.03 L, Hgb 11.9 L, Hct 35.7 L, MCV 88.5, MCH 29.5, MCHC 33.4, RDW 14.8, Plt Count 284, MPV 8.2, Neut % (Auto) 82.3 H, Lymph % (Auto) 12.9, Robertson % (Auto) 4.4, Eos % (Auto) 0.1, Baso % (Auto) 0.3, Neut # (Auto) 8.2 H, Lymph # (Auto) 1.3, Robertson # (Auto) 0.4, Eos # (Auto) 0.0, Baso # (Auto) 0.0, Sodium 139, Potassium 4.5, Chloride 108 H, Carbon Dioxide 25, Anion Gap 10.5, BUN 12, Creatinine 0.80, Estimated Creat Clear 157, Estimated GFR 81, Est GFR ( Amer) 98, Glucose 106 H, Calcium 8.5, Magnesium 2.0, Total Bilirubin 3.2 H, AST 421 H* D, ALT 577 H*, Alkaline Phosphatase 191 H, Total Protein 7.3, Albumin 4.2, Globulin 3.1, Albumin/Globulin Ratio 1.4 I & O for Last 24 hours: Intake & Output 07/27/23 07/28/23 07/29/23 07/30/23 11:59 11:59 11:59 11:59 Intake Total 1000 / 1000 Output Total 0 / 0 500 / 500 Balance 0 / 0 500 / 500 Weight 219 lb 8.017 oz 226 lb *Routine Abdominal Exam Abdominal: Present soft Comments: Dressings dry. Progress Note: A&P Assessment and plan (1) Calculous cholecystitis: Status: Acute Assessment and Plan Assessment and Plan for All Diagnoses:: Patient clinically feels quite well. Liver function tests have shown some slight progressive elevation. Given the patient's significant clinical improvement however plan will be for discharge with very early outpatient follow-up to recheck her labs. The laboratory derangement could be reactive postsurgical or she could have passed the stone. There is still the possibility of choledocholithiasis. She will be discharged on antibiotics to prevent ascending cholangitis. I instructed her to return if she has severe abdominal pain especially associated with jaundice. She will have outpatient labs otherwise checked in 48 hours.
--- NOTE | 2023-07-31 14:44 | CARE MANAGER ---
Contacted patient related to hospital discharge. Patient states she is sore but doing well. Has switched antibiotic due to reaction to first. Is aware of follow up appointments. RAJ Buenrostro
== END 2023-07-30 10:30 | disposition home or self-care (01) ==
LOC: ER 22:22 → 2ND 07-29 02:00 → OB 07-29 21:48
PROVIDERS: Nurse Practitioner Critical Care Medicine; Surgery; Admitting Provider Internal Medicine Adolescent Medicine; Emergency Provider Emergency Medicine; PCP Nurse Practitioner Family; Visit Provider Internal Medicine Adolescent Medicine
PROC: 0FT44ZZ Resection of Gallbladder, Percutaneous Endoscopic Approach (ICD-10-PCS; CPT 47562; principal; 2023-07-29 15:00)
DX: K80.12 Calculus of gallbladder with acute and chronic cholecystitis without obstruction (principal)
CPT/HCPCS: 47562; 36415; 74177; 74181; 76376; 76705; 80048; 80053; 80074; 81001; 81025; 83690; 83735; 85025; 99285; G0378; J0131; J2405; Q9967

== ENCOUNTER → 2023-08-01 11:06 | Outpatient (CLI) | payer BC, SELFPAY ==
[2023-08-01 11:52] LABS: Basophils % 0.5 % (0.1-2.0); Eosinophils # 0.2 K/mm3 (0.0-0.4); Eosinophils % 2.3 % (0.1-12.0); Hematocrit 39.5 % (37.0-47.0); Lymphocytes # 1.3 K/mm3 (0.7-4.5); Lymphocytes % 18.4 % (10-50); Mean Corpuscular HGB Conc 32.9 g/dL (31.8-35.4); Mean Corpuscular Hemoglobin 29.6 pg (27.0-31.2); Mean Corpuscular Volume 90.2 fl (81-99); Mean Platelet Volume 8.1 fl (7.4-10.4); Monocytes # 0.4 K/mm3 (0.1-1.0); Monocytes % 5.1 % (1.7-9.3); Neutrophils # 5.1 K/mm3 (1.8-7.8); Neutrophils % 73.8 % (37.0-80.0); Platelet Count 294 K/mm3 (142-424); Red Blood Count 4.38 M/mm3 (4.20-5.40); White Blood Count 6.9 K/mm3 (4.8-10.8)
[2023-08-01 12:38] LABS: Alanine Aminotransferase 460 U/L (12-78); Albumin Level 4.4 g/dl (3.5-5.0); Albumin/Globulin Ratio 1.4 (1.1-1.8); Alkaline Phosphatase 292 U/L (38-126); Anion Gap 15.4 mEq/L (5-15); Aspartate Amino Transferase 174 U/L (14-36); Bilirubin,Total 5.3 mg/dl (0.2-1.3); Blood Urea Nitrogen 10 mg/dl (7-17); Calcium 9.4 mg/dl (8.4-10.2); Carbon Dioxide 24 mmol/L (22.0-30.0); Chloride 104 mmol/L (98-107); Estimated Glomerular Filt Rate 81 ml/min (>60); GFR (African American) 98 ML/MIN (>60); Globulin 3.1 g/dL (1.3-3.2); Glucose 99 mg/dl (74-100); Potassium 4.4 mmoL/L (3.5-5.1); Sodium 139 mmol/L (136-145); Total Protein,Serum 7.5 g/dl (6.3-8.2)
== END ==
PROVIDERS: PCP Internal Medicine Adolescent Medicine; Visit Provider Nurse Practitioner Family
DX: K81.9 Cholecystitis, unspecified (principal)
CPT/HCPCS: 36415; 80053; 85025

== ENCOUNTER → 2023-08-03 08:33 | Outpatient (CLI) | payer BC, SELFPAY ==
[2023-08-03 08:56] LABS: Basophils % 0.4 % (0.1-2.0); Eosinophils # 0.1 K/mm3 (0.0-0.4); Eosinophils % 0.9 % (0.1-12.0); Hematocrit 40.6 % (37.0-47.0); Hemoglobin 13.4 g/dL (12.2-16.2); Lymphocytes # 1.1 K/mm3 (0.7-4.5); Lymphocytes % 12.8 % (10-50); Mean Corpuscular Hemoglobin 29.7 pg (27.0-31.2); Mean Corpuscular Volume 89.8 fl (81-99); Mean Platelet Volume 7.9 fl (7.4-10.4); Monocytes # 0.4 K/mm3 (0.1-1.0); Monocytes % 4.9 % (1.7-9.3); Neutrophils # 7.1 K/mm3 (1.8-7.8); Platelet Count 310 K/mm3 (142-424); Red Blood Count 4.52 M/mm3 (4.20-5.40); Red Cell Distribution Width 15.5 % (11.5-17.5); White Blood Count 8.8 K/mm3 (4.8-10.8)
[2023-08-03 09:04] LABS: Chloride 106 mmol/L (98-107); Potassium 3.7 mmoL/L (3.5-5.1); Sodium 140 mmol/L (136-145)
[2023-08-03 09:06] LABS: Alanine Aminotransferase 364 U/L (12-78); Aspartate Amino Transferase 138 U/L (14-36); Blood Urea Nitrogen 8 mg/dl (7-17); Estimated Glomerular Filt Rate 71 ml/min (>60); GFR (African American) 86 ML/MIN (>60)
[2023-08-03 09:07] LABS: Albumin Level 4.7 g/dl (3.5-5.0); Albumin/Globulin Ratio 1.3 (1.1-1.8); Alkaline Phosphatase 400 U/L (38-126); Anion Gap 13.7 mEq/L (5-15); Bilirubin,Total 2.5 mg/dl (0.2-1.3); Carbon Dioxide 24 mmol/L (22.0-30.0); Globulin 3.7 g/dL (1.3-3.2); Glucose 120 mg/dl (74-100); Total Protein,Serum 8.4 g/dl (6.3-8.2)
== END ==
PROVIDERS: PCP Internal Medicine Adolescent Medicine; Visit Provider Nurse Practitioner Family
DX: K81.9 Cholecystitis, unspecified (principal)
CPT/HCPCS: 36415; 80053; 85025

== ENCOUNTER → 2023-08-17 08:24 | Outpatient (CLI) | payer BC, SELFPAY ==
[2023-08-17 09:11] LABS: Basophils # 0.1 K/mm3 (0-0.2); Basophils % 0.8 % (0.1-2.0); Eosinophils # 0.2 K/mm3 (0.0-0.4); Eosinophils % 2.5 % (0.1-12.0); Hematocrit 38.6 % (37.0-47.0); Hemoglobin 10.9 g/dL (12.2-16.2); Lymphocytes # 1.9 K/mm3 (0.7-4.5); Lymphocytes % 28.9 % (10-50); Mean Corpuscular HGB Conc 28.3 g/dL (31.8-35.4); Mean Corpuscular Hemoglobin 24.7 pg (27.0-31.2); Mean Corpuscular Volume 87.2 fl (81-99); Monocytes # 0.3 K/mm3 (0.1-1.0); Neutrophils # 4.2 K/mm3 (1.8-7.8); Neutrophils % 63.8 % (37.0-80.0); Platelet Count 470 K/mm3 (142-424); Red Blood Count 4.43 M/mm3 (4.20-5.40); Red Cell Distribution Width 14.9 % (11.5-17.5); White Blood Count 6.6 K/mm3 (4.8-10.8)
[2023-08-17 09:51] LABS: Alanine Aminotransferase 65 U/L (12-78); Albumin Level 4.4 g/dl (3.5-5.0); Albumin/Globulin Ratio 1.5 (1.1-1.8); Alkaline Phosphatase 109 U/L (38-126); Anion Gap 13.5 mEq/L (5-15); Aspartate Amino Transferase 42 U/L (14-36); Bilirubin,Total 0.7 mg/dl (0.2-1.3); Blood Urea Nitrogen 17 mg/dl (7-17); Calcium 9.1 mg/dl (8.4-10.2); Carbon Dioxide 26 mmol/L (22.0-30.0); Chloride 104 mmol/L (98-107); Estimated Glomerular Filt Rate 71 ml/min (>60); GFR (African American) 86 ML/MIN (>60); Glucose 141 mg/dl (74-100); Potassium 4.5 mmoL/L (3.5-5.1); Sodium 139 mmol/L (136-145); Total Protein,Serum 7.4 g/dl (6.3-8.2)
== END ==
PROVIDERS: PCP Internal Medicine Adolescent Medicine; Visit Provider Nurse Practitioner Family
DX: R74.01 Elevation of levels of liver transaminase levels (principal); R17 Unspecified jaundice; Z90.49 Acquired absence of other specified parts of digestive tract
CPT/HCPCS: 80053; 85025

== ENCOUNTER → 2023-08-30 08:19 | Outpatient (CLI) | payer BC, SELFPAY | PROVIDERS: PCP Internal Medicine Adolescent Medicine; Visit Provider Surgery | DX: R10.11 Right upper quadrant pain (principal); R74.8 Abnormal levels of other serum enzymes ==

== ENCOUNTER → 2023-09-12 07:35 | Outpatient (CLI) | payer BC, SELFPAY ==
--- NOTE | 2023-09-12 07:36 | MR_ITS ---
FINAL REPORT CLINICAL HISTORY: gallbladder removal 6 WEEKS AGO. ELEVATED LIVER ENZYMES. RIGHT UPPER QUADRANT PAIN COMPARISON: 07/29/2023 FINDINGS: Multiplanar MR imaging of the abdomen was performed without contrast. Since the prior MRI of July 29 the patient has undergone a cholecystectomy. Images of the liver reveal no evidence of mass. There is no evidence of biliary ductal dilatation. The common bile duct measures 6 mm in diameter. There is no abnormal signal within the common bile duct. The previously noted small focus of signal in the distal common duct on the prior MRI is no longer seen. There is tapering of the distal common bile duct. The spleen, pancreas, adrenals and kidneys appear unremarkable. No other mass or adenopathy is identified. IMPRESSION: Interval cholecystectomy since the prior MRI. No evidence of choledocholithiasis. Reviewed, Interpreted and Dictated by Raza Coleman MD Transcribed by Lulu Cobos Authenticated and [facility]
== END ==
PROVIDERS: PCP Internal Medicine Adolescent Medicine; Visit Provider Surgery
DX: Z90.49 Acquired absence of other specified parts of digestive tract (principal)
CPT/HCPCS: 74181; 76376